=== PATIENT | female | born 1995 | race Caucasian/White ===

== ENCOUNTER 2021-09-04 09:34 | Emergency (ER) | payer MEDICAID ==
[~2021-09-04] VITALS: Ht 170.2 cm; Wt 87.2 kg
[2021-09-04] MEDS ORDERED: proCHLORperazine 10 MG/2 ml inj IV ONE (11:20)
[2021-09-04] MEDS ORDERED: diphenhydrAMINE 50 mg/ml inj IV ONE (11:20)
[2021-09-04] MEDS ORDERED: ketorolac trometh. 30mg/ml inj. IV ONE (11:20)
[2021-09-04] MEDS ORDERED: ringers solution, lacted 1,000 ML IV ONE (11:35)
[2021-09-04 12:18] LABS: URINE HCG NEGATIVE (NEG)
[2021-09-04] MEDS ORDERED: SUMA50TA PO (12:52)
[2021-09-04 13:12] VITALS: BP 132/75
== END 2021-09-04 13:13 | disposition home or self-care (01) ==
LOC: ER 09:34
DX: G43.909 Migraine, unspecified, not intractable, without status migrainosus (principal); R42 Dizziness and giddiness; D22.9 Melanocytic nevi, unspecified; Z79.899 Other long term (current) drug therapy
CPT/HCPCS: 81025; 96361; 96374; 96375; 99284; J0780; J1200; J1885; J7120

== ENCOUNTER 2021-11-23 18:41 | Emergency (ER) | payer MEDICAID ==
[~2021-11-23] VITALS: Ht 167.6 cm; Wt 82.4 kg
[2021-11-23 19:35] LABS: BASOPHILS % (AUTO) 0.7 % (0-1); EOSINOPHILS # (AUTO) 0.1 X10'3 (0-0.9); EOSINOPHILS % (AUTO) 1.7 % (0-6); HEMATOCRIT 38.7 % (35.0-45.0); HEMOGLOBIN 13.2 g/dl (12.0-16.0); LYMPHOCYTES # (AUTO) 2.3 X10'3 (1.1-4.8); LYMPHOCYTES % (AUTO) 32.5 % (21-51); MEAN CORPUSCULAR HEMOGLOBIN 31.2 PG (27.0-31.0); MEAN CORPUSCULAR HGB CONC 34.1 g/dL (33.0-36.5); MEAN CORPUSCULAR VOLUME 91.5 FL (78-98); MEAN PLATELET VOLUME 8.4 FL (7.4-10.4); MONOCYTES # (AUTO) 0.6 X10'3 (0-0.9); MONOCYTES % (AUTO) 7.9 % (2-12); NEUTROPHILS # (AUTO) 4.1 X10'3 (1.8-7.7); NEUTROPHILS % (AUTO) 57.2 % (42-75); PLATELET COUNT 273 X10'3 (140-440); RED BLOOD COUNT 4.23 X10'6 (4.20-5.60); RED CELL DISTRIBUTION WIDTH 13.4 % (11.5-14.5); WHITE BLOOD COUNT 7.1 X10'3 (4.5-11.0)
[2021-11-23 19:57] LABS: ALANINE AMINOTRANSFERASE 19 U/L (12-78); ALBUMIN 3.6 G/DL (3.4-5.0); ALBUMIN/GLOBULIN RATIO 1.1 (1.1-1.5); ALKALINE PHOSPHATASE 60 IU/L (46-116); ANION GAP 10 (8-16); ASPARTATE AMINO TRANSFERASE 13 U/L (10-37); BILIRUBIN,TOTAL 0.3 MG/DL (0.1-1.0); BLOOD UREA NITROGEN 9 MG/DL (7-18); BUN/CREATININE RATIO 12.3 (6.6-38.0); CALCIUM 8.3 MG/DL (8.5-10.1); CHLORIDE 109 MMOL/L (99-107); CREATININE 0.73 MG/DL (0.40-0.90); GLUCOSE 107 MG/DL (70-104); POTASSIUM 3.8 MMOL/L (3.5-5.1); SODIUM 142 MMOL/L (135-145); TOTAL CARBON DIOXIDE 22.8 MMOL/L (24-32); eGFR > 90 ML/MIN
[2021-11-24] MEDS ORDERED: albuterol 2.5 MG/3 ML nebule CONTNEB PRN (00:35)
[2021-11-24] MEDS ORDERED: predniSONE 20 mg tablet PO ONE (00:35)
[2021-11-24] MEDS ORDERED: PRED20TA PO (01:55)
[2021-11-24] MEDS ORDERED: ALBU6.7H9 INH (01:55)
[2021-11-24 02:03] VITALS: BP 124/72
== END 2021-11-24 02:05 | disposition home or self-care (01) ==
LOC: ER 18:42
DX: J45.901 Unspecified asthma with (acute) exacerbation (principal); Z20.822 Contact with and (suspected) exposure to COVID-19; G43.909 Migraine, unspecified, not intractable, without status migrainosus; Z79.899 Other long term (current) drug therapy
CPT/HCPCS: 36415; 71045; 80053; 83880; 84484; 85025; 87502; 87503; 87635; 94644; 99285; C9803; J7512; 93005; 94640; 94760; A7015

== ENCOUNTER 2022-02-07 21:47 | Emergency (ER) | payer MEDICAID ==
[~2022-02-07] VITALS: Ht 167.6 cm; Wt 81.8 kg
[~2022-02-07 21:47] MED LIST: ALBU6.7H9 INH
[2022-02-08 02:21] VITALS: BP 122/87
[2022-02-08] MEDS ORDERED: ACET-1025 PO (02:39)
[2022-02-08] MEDS ORDERED: IBUP-1984 PO (02:39)
[2022-02-08] MEDS ORDERED: NEBU-227 (02:39)
[2022-02-08] MEDS ORDERED: PRED20TA PO (02:39)
== END 2022-02-08 02:55 | disposition home or self-care (01) ==
LOC: ER 21:48
DX: J45.909 Unspecified asthma, uncomplicated (principal); Z20.822 Contact with and (suspected) exposure to COVID-19; G43.909 Migraine, unspecified, not intractable, without status migrainosus
CPT/HCPCS: 87635; 99283; C9803

== ENCOUNTER 2022-06-10 08:54 | Emergency (ER) | payer MEDICAID ==
[~2022-06-10] VITALS: Ht 167.6 cm; Wt 68.0 kg
[~2022-06-10 08:54] MED LIST changes: +ALBU6.7H14 INH; -ALBU6.7H9 INH; +NEBU-227
[2022-06-10 10:26] VITALS: BP 118/87
[2022-06-10] MEDS ORDERED: dexamethasone sod phosphate 10mg/ml inj PO STA (11:20)
[2022-06-10] MEDS ORDERED: AZIT-83 PO (11:23)
[2022-06-10] MEDS ORDERED: ALBU90AE INH (11:23)
[2022-06-10] MEDS ORDERED: PRED20TA PO (12:10)
--- NOTE | 2022-06-10 12:20 | NUR ---
Patient requested to speak with me regarding a complaint she wanted to file against Dr. Chapa. Upon arrival to room, I introduced myself and patient immediately started to discuss the many times and hospitals that she has been to and how she has never been talked to like she was today. I told her I didn't really need to know the names of the hospitals she has been to, just the details of what happened today. Patient then proceed to tell me that the doctor was giving her a lecture on how bad smoking is and that she needed to quit. She stated that she is an occassional smoker and can quite today. She also stated that there were no tests done to diagnose her and that she hadn't had an "xray or viral testing. For example, I need a urine sampe to maybe check for cancer." I asked what viral testing she wanted to have done, but I also explained to her that usually with viral illnesses it is strictly symptomatic care and no antibiotics are usually prescribed. Also explained that the urine sample would not diagnose cancer and she stated,"well that was just an example". I then asked if she was having urinary symptoms and she stated, "I already told the doctor my symptoms". I explained that auscultation of the lungs was a valid diagnosic tool and that the physician may not have needed much more information than that. She then stated that she was not concerned with the diagnosis that she was given, the physician was going to prescribe antibiotics and steriods per patient. But that she felt that the doctor was "negligent and unprofessional". I stated so you feel that the physician was unprofessional in the way he communication to you, not the diagnosis. The patient then states that I was not listening and that I just wanted to be argumentative. Patient then stated that she no longer wanted to speak with me, that she wanted to file an official complaint with my director as she waved me away. I told her that I would get her now. Patient then asked me for my name because she needed to report me also. I then stated, "My name is shari I am the clinical floating labor gang supervisor at [facility] and she can absolutely file a complaint against me". Then patient shouted, "No wonder this place is a shit show." I then walked away.
== END 2022-06-10 12:45 | disposition home or self-care (01) ==
LOC: ER 08:55
DX: J20.9 Acute bronchitis, unspecified (principal); R50.9 Fever, unspecified; G43.909 Migraine, unspecified, not intractable, without status migrainosus; F17.200 Nicotine dependence, unspecified, uncomplicated
CPT/HCPCS: 99283; J1100

== ENCOUNTER 2022-10-10 23:55 | Emergency (ER) | payer MEDICAID ==
[~2022-10-10] VITALS: Ht 167.6 cm; Wt 88.8 kg
[~2022-10-10 23:55] MED LIST changes: +ALBU90AE INH
[2022-10-11 00:02] VITALS: BP 116/85
== END 2022-10-11 04:25 | disposition left against medical advice (07) ==
LOC: ER 23:55
DX: N93.9 Abnormal uterine and vaginal bleeding, unspecified (principal); Z53.21 Procedure and treatment not carried out due to patient leaving prior to being seen by health care provider
CPT/HCPCS: 99281

== ENCOUNTER 2022-10-11 20:58 | Emergency (ER) | payer MEDICAID ==
[~2022-10-11] VITALS: Ht 167.6 cm; Wt 88.0 kg
[2022-10-11 21:15] VITALS: BP 116/79
[2022-10-11 22:36] LABS: BASOPHILS # (AUTO) 0.2 X10'3 (0-0.2); BASOPHILS % (AUTO) 1.8 % (0-1); EOSINOPHILS # (AUTO) 0.1 X10'3 (0-0.9); EOSINOPHILS % (AUTO) 1.1 % (0-6); HEMATOCRIT 38.2 % (35.0-45.0); HEMOGLOBIN 12.9 g/dl (12.0-16.0); LYMPHOCYTES # (AUTO) 2.1 X10'3 (1.1-4.8); LYMPHOCYTES % (AUTO) 21.3 % (21-51); MEAN CORPUSCULAR HEMOGLOBIN 31.4 PG (27.0-31.0); MEAN CORPUSCULAR HGB CONC 33.8 g/dL (33.0-36.5); MEAN PLATELET VOLUME 7.7 FL (7.4-10.4); MONOCYTES # (AUTO) 0.8 X10'3 (0-0.9); MONOCYTES % (AUTO) 7.6 % (2-12); NEUTROPHILS # (AUTO) 6.8 X10'3 (1.8-7.7); NEUTROPHILS % (AUTO) 68.2 % (42-75); PLATELET COUNT 307 X10'3 (140-440); RED BLOOD COUNT 4.11 X10'6 (4.20-5.60); RED CELL DISTRIBUTION WIDTH 13.3 % (11.5-14.5); WHITE BLOOD COUNT 9.9 X10'3 (4.5-11.0)
[2022-10-11 22:57] LABS: ALANINE AMINOTRANSFERASE 17 U/L (12-78); ALBUMIN 3.7 G/DL (3.4-5.0); ALKALINE PHOSPHATASE 63 IU/L (46-116); ANION GAP 9 (8-16); ASPARTATE AMINO TRANSFERASE 9 U/L (10-37); BILIRUBIN,TOTAL 0.2 MG/DL (0.1-1.0); BLOOD UREA NITROGEN 10 MG/DL (7-18); BUN/CREATININE RATIO 11.9 (10.0-20.0); CALCIUM 8.5 MG/DL (8.5-10.1); CHLORIDE 105 MMOL/L (99-107); CREATININE 0.84 MG/DL (0.40-0.90); GLUCOSE 95 MG/DL (70-104); POTASSIUM 3.5 MMOL/L (3.5-5.1); SODIUM 139 MMOL/L (135-145); TOTAL PROTEIN 7.4 G/DL (6.4-8.2); eGFR 81 ML/MIN
[2022-10-11 23:02] LABS: BETA HCG,QUANTITATIVE < 1.0 mIU/ml
[2022-10-12 01:47] LABS: GLUCOSE, URINE NEGATIVE (Neg); KETONES,URINE NEGATIVE (Neg); LEUKOCYTE ESTERASE ,URINE NEGATIVE (Neg); NITRITES, URINE NEGATIVE (Neg); OCCULT BLOOD,URINE LARGE (Neg); PH,URINE 6.5 (4.8-8.0); PROTEIN,URINE NEGATIVE (Neg); UROBILINOGEN,URINE 0.2 E.U/dL (0.2-1.0)
[2022-10-12 01:54] LABS: UA COLLECTION TYPE CLN CATCH MIDSTREAM
[2022-10-12 01:55] LABS: CLARITY,URINE SLIGHTLY CLOUDY (Clear); COLOR,URINE PINK (Yellow)
[2022-10-12 01:58] LABS: HEMATOCRIT 36.9 % (35.0-45.0); HEMOGLOBIN 12.8 g/dl (12.0-16.0); MEAN CORPUSCULAR HEMOGLOBIN 31.9 PG (27.0-31.0); MEAN CORPUSCULAR HGB CONC 34.6 g/dL (33.0-36.5); MEAN CORPUSCULAR VOLUME 92.2 FL (78-98); MEAN PLATELET VOLUME 7.9 FL (7.4-10.4); PLATELET COUNT 291 X10'3 (140-440); RED BLOOD COUNT 4.01 X10'6 (4.20-5.60); WHITE BLOOD COUNT 8.4 X10'3 (4.5-11.0)
[2022-10-12 01:59] LABS: BACTERIA,URINE 1+ /HPF (Neg); RBC,URINE 0-2 /HPF (0-2); SQUAMOUS EPITHELIAL CELL,UR MODERATE /LPF (FEW); WBC,URINE 0-4 /HPF (0-4)
== END 2022-10-12 03:10 | disposition home or self-care (01) ==
LOC: ER 20:58
DX: N93.9 Abnormal uterine and vaginal bleeding, unspecified (principal); R30.0 Dysuria; N81.10 Cystocele, unspecified; G43.909 Migraine, unspecified, not intractable, without status migrainosus; J45.909 Unspecified asthma, uncomplicated
CPT/HCPCS: 36415; 76856; 80053; 81001; 84702; 85025; 85027; 86885; 86900; 86901; 93976; 99284